=== PATIENT | male | born 1960 | race African-American/Black ===

== ENCOUNTER 2018-12-26 00:35 | Emergency (ER) | payer OTHER ==
[~2018-12-26] VITALS: Ht 185.4 cm; Wt 90.0 kg
[2018-12-26 00:40] VITALS: BP 180/90
[2018-12-26] MEDS ORDERED: KETOROLAC 15MG/ML VIAL IM ONE (01:15)
== END 2018-12-26 02:25 | disposition left against medical advice (07) ==
LOC: ER 00:35
DX: M54.6 Pain in thoracic spine (principal); I10 Essential (primary) hypertension; V49.59XA Passenger injured in collision with other motor vehicles in traffic accident, initial encounter; Y93.89 Activity, other specified; Y92.89 Other specified places as the place of occurrence of the external cause; Y99.8 Other external cause status
CPT/HCPCS: 96372; 99283; J1885